=== PATIENT | male | born 1950 | race Caucasian/White ===

== ENCOUNTER 2016-08-13 08:27 | Day surgery (SDC) | payer OTHER, BC ==
[2016-08-11 12:19] VITALS: BMI 31.8
[2016-08-13 09:15] VITALS: TEMP 97.9
[2016-08-13] MEDS ORDERED: PROPOFOL 20 ML ONE ×2 (09:19)
[2016-08-13 11:18] VITALS: BP 125/60; PULSE 60
--- NOTE | 2016-08-14 12:23 | PATH ---
Surgical Pathology Report Patient Name: KEEGAN ARIAS [facility]. Rec. #: [id number] /Age/Gender: 1950 (Age: 65) / M Account: [id number] Location: [facility]-ENDOSCOPY Taken: 08/13/2016 Received: 08/13/2016 Reported: 08/14/2016 Physicians: Matthew Arredondo M.D. Specimen(s) Received A: BX DUODENUM B: BX ANTRUM C: BX ESOPHAGUS Clinical History Anemia, rule out colon cancer Gastritis, diverticulosis Final Diagnosis A. DUODENUM, BIOPSY: DUODENAL MUCOSA WITH NO PATHOLOGIC CHANGES. NO HISTOLOGIC EVIDENCE OF GLUTEN SENSITIVE ENTEROPATHY (CELIAC SPRUE) IDENTIFIED. B. STOMACH, ANTRUM, BIOPSY: MILD CHRONIC GASTRITIS. IMMUNOSTAIN FOR H. PYLORI IS NEGATIVE. C. ESOPHAGUS, BIOPSY: SQUAMOUS AND GASTRIC TYPE MUCOSA WITH ACUTE AND CHRONIC INFLAMMATION. NO INTESTINAL METAPLASIA IDENTIFIED (NO CORDON'S IDENTIFIED). Electronically Signed Lawrence Medina M.D. Gross Description A. Received in formalin, labeled "duodenum" is a villaseñor, irregular portion of soft tissue measuring 0.4 cm. in greatest dimension. The specimen is submitted in toto in one cassette. B. Received in formalin, labeled "antrum" are 2 villaseñor, irregular portions of soft tissue averaging 0.4 cm. in greatest dimension. The specimens are submitted in toto in one cassette. C. Received in formalin, labeled "esophagus" is a villaseñor, irregular portion of soft tissue measuring 0.3 cm. in greatest dimension. The specimen is submitted in toto in one cassette. 08/13/2016 saudi08/13/2016
== END 2016-08-13 11:15 | disposition home or self-care (01) ==
LOC: FASU-ENDO 08:27
PROVIDERS: ATTEND Internal Medicine Gastroenterology
PROC: 0DJD8ZZ Inspection of Lower Intestinal Tract, Via Natural or Artificial Opening Endoscopic (ICD-10-PCS; principal; 2016-08-13 09:41)
DX: D64.9 Anemia, unspecified (principal); K57.30 Diverticulosis of large intestine without perforation or abscess without bleeding
CPT/HCPCS: 88305-TC; 88342-TC